=== PATIENT | male | born 1975 ===

== ENCOUNTER 2023-01-17 23:58 | Emergency (ER) | payer OTHER, SELFPAY ==
[2023-01-18 00:01] VITALS: BP 152/77; PULSE 78; RESP 20; TEMP 37.1; O2SAT 98
--- NOTE | 2023-01-18 01:01 | PC.NURSE ---
no answer at triage
== END 2023-01-18 01:36 | disposition left against medical advice (07) ==
PROVIDERS: PCP Emergency Medicine
DX: M54.50 Low back pain, unspecified (principal)
CPT/HCPCS: 99199